=== PATIENT | female | born 1945 | race Caucasian/White ===

== ENCOUNTER 2017-12-06 17:46 | Emergency (ER) | payer MEDICARE, OTHER ==
[~2017-12-06] VITALS: Ht 170.2 cm; Wt 106.1 kg
--- NOTE | ~2017-12-06 | EKG ---
[address] [address] ELECTROCARDIOGRAM REPORT Name: ILAN EASON Room #: [facility]#: [id number] Admission: 12/06/17 Attend Phys: Discharge: 12/06/17 Date of : 49 Report #: [id number] THIS REPORT FOR: //name// [facility] ED Test Date: 2017-12-06 Test Time: 18:14:43 Pat Name: ILAN EASON Department: Room: Gender: F Director [employer]: MAME : 1945 Requested By: Paul Downs Order Number: [id number] MD: Jorgito Peterson Measurements Intervals [place] Rate: 77 P: 29 AR: 158 QRS: 6 QRSD: 94 T: 2 QT: 394 QTc: 446 Interpretive Statements Sinus rhythm Probable left atrial enlargement Compared to ECG 02/04/2015 12:28:13 Sinus bradycardia no longer present Electronically Signed On 12-07-2017 9:09:40 CDT by Jorgito Peterson [email or web address] <ELECTRONICALLY SIGNED> By: Jorgito Peterson MD, [facility] 12/07/17 0909 13 13 Jorgito Peterson MD, [facility] /EPI
[~2017-12-06 17:46] MED LIST: ABILIFY 2 MG2 M1 PO; ALDACTAZIDE 251 EAC1 PO; APAP500; ASPIRIN EC81 M1 PO; BENZTROPINE MES1 MG PO; BRINTELLIX10 MG; CITRACAL + BON1 EACH PO; CLEOCIN HCL300 MG PO; COUMADIN 5 MG TA5 M1 PO; ELIMITE60 GM TP; MELOXICAM7.5 MG PO; NEURONTIN 300M300 M2 PO; OMEPRAZOLE40 MG PO; PRAVASTATIN SOD40 MG PO; PREDNISONE 20 M20 MG PO; TOPROL XL100 MG PO; VITAMIN D-32000 UNIT PO; WELLBUTRIN SR150 MG PO; ZESTRIL20 MG PO
[2017-12-06] MEDS ORDERED: COUMADIN 3 MG TA3 M1 PO (17:56)
[2017-12-06] MEDS ORDERED: FLONASE 0.05%50 MCG NASAL (17:56)
[2017-12-06 18:48] LABS: ABSOLUTE NEUTROPHILS 7.7 thou/uL (1.4-8.2); EOSINOPHILS 1.6 % (0.0-3.0); HEMATOCRIT 35.6 % (37.0-47.0); HEMOGLOBIN 12.1 gm/dL (12.0-15.0); LYMPHOCYTES 21.4 % (24.0-44.0); MCH 31.9 pg (26.0-34.0); MCHC 34.1 g/dL (28.0-37.0); MCV 93.5 fL (80.0-100.0); MONOCYTES 5.8 % (1.0-8.0); PLATELET COUNT 284 thou/uL (150-400); POLYS 70.2 % (36.0-66.0); RDW 15.7 % (10.5-14.5)
[2017-12-06 18:58] LABS: ANION GAP 9 mmol/L (7-16); BUN 15 mg/dL (7-18); CALCIUM 9.1 mg/dL (8.5-10.1); CHLORIDE 102 mmol/L (98-107); CO2 26 mmol/L (21-32); CREATININE 1.1 mg/dL (0.6-1.0); GLUCOSE 138 mg/dL (74-106); POTASSIUM 3.7 mmol/L (3.5-5.1); SODIUM 137 mmol/L (136-145)
[2017-12-06 18:59] LABS: INR 1.7
[2017-12-06 19:05] LABS: ALBUMIN 3.3 g/dL (3.4-5.0); SGOT 23 U/L (15-37); SGPT 25 U/L (30-65); TOTAL BILIRUBIN 0.2 mg/dL (<0.1-1.0); TOTAL PROTEIN 7.6 g/dL (6.4-8.2); TROPONIN-I < 0.04 ng/mL (<0.06)
[2017-12-06] MEDS ORDERED: COUMADIN 4 MG TA4 M1 PO (20:39)
[2017-12-06 20:50] VITALS: BP 139/76
== END 2017-12-06 21:17 | disposition home or self-care (01) ==
LOC: ER 17:46
PROVIDERS: Physician Assistant
DX: R05 Cough (principal); I10 Essential (primary) hypertension; E78.00 Pure hypercholesterolemia, unspecified; Z96.659 Presence of unspecified artificial knee joint; Z86.711 Personal history of pulmonary embolism; Z88.8 Allergy status to other drugs, medicaments and biological substances; Z88.0 Allergy status to penicillin; Z88.6 Allergy status to analgesic agent

== ENCOUNTER 2020-04-26 06:52 | Emergency (ER) | payer MEDICARE, OTHER ==
[~2020-04-26] VITALS: Ht 177.8 cm; Wt 105.7 kg
[~2020-04-26 06:52] MED LIST changes: +COUMADIN 3 MG TA3 M1 PO; +COUMADIN 4 MG TA4 M1 PO; +FLONASE 0.05%50 MCG NASAL
[2020-04-26] MEDS ORDERED: ONDANSETRON HCL4 M3 PO (07:06)
[2020-04-26] MEDS ORDERED: VISTARIL 25 MG25 M1 PO (07:07)
[2020-04-26] MEDS ORDERED: NORVASC5 MG PO (07:08)
[2020-04-26 07:58] LABS: ABSOLUTE NEUTROPHILS 6.9 thou/uL (1.4-8.2); BASOPHILS 1.2 % (0.0-2.0); EOSINOPHILS 1.4 % (0.0-3.0); HEMATOCRIT 37.2 % (37.0-47.0); HEMOGLOBIN 12.5 gm/dL (12.0-15.0); LYMPHOCYTES 15.5 % (24.0-44.0); MCH 31.5 pg (26.0-34.0); MCHC 33.7 g/dL (28.0-37.0); MCV 93.6 fL (80.0-100.0); MONOCYTES 7.4 % (1.0-8.0); PLATELET COUNT 265 thou/uL (150-400); POLYS 74.5 % (36.0-66.0); RBC 3.98 mil/uL (4.20-5.00); RDW 15.2 % (10.5-14.5); WBC 9.2 thou/uL (4.0-11.0)
[2020-04-26 08:47] LABS: ANION GAP 8 mmol/L (7-16); BUN 21 mg/dL (7-18); CALCIUM 8.6 mg/dL (8.5-10.1); CHLORIDE 103 mmol/L (98-107); CO2 27 mmol/L (21-32); GLUCOSE 115 mg/dL (74-106); POTASSIUM 4.2 mmol/L (3.5-5.1); SODIUM 138 mmol/L (136-145)
[2020-04-26 08:58] LABS: ALBUMIN 3.2 g/dL (3.4-5.0); DIRECT BILIRUBIN < 0.1 mg/dL (<0.1-0.2); SGOT 23 U/L (15-37); SGPT 25 U/L (30-65); TOTAL BILIRUBIN 0.3 mg/dL (0.2-1.0); TOTAL PROTEIN 7.2 g/dL (6.4-8.2); TROPONIN-I <0.06 ng/mL (<0.06)
[2020-04-26 09:28] LABS: APTT 53.5 Seconds (24.5-32.8); INR 2.9; PROTIME 30.2 Seconds (9.3-11.4)
[2020-04-26] MEDS ORDERED: LIDODERM1 EACH TOP (10:03)
[2020-04-26 10:27] VITALS: BP 152/89
--- NOTE | 2020-04-26 12:47 | EKG ---
[facility] [place] [address] ELECTROCARDIOGRAM REPORT Name: ILAN EASON Room #: [facility]#: [id number] Admission: 04/26/20 Attend Phys: Discharge: 04/26/20 Date of : [birth year] Report #: [id number] THIS REPORT FOR: cc: [facility] - Clinic physician unknown [facility] - Clinic physician unknown Porfirio Alas MD [facility] ~ THIS REPORT FOR: //name// [facility] ED Test Date: 2020-04-26 Test Time: 07:29:40 Pat Name: ILAN EASON Department: Room: Gender: F [employer] Specialty: : 1945 Requested By: Christine Hall Order Number: [id number] MD: Porfirio Alas Measurements Intervals [place] Rate: 61 P: 34 OR: 164 QRS: 2 QRSD: 89 T: 17 QT: 435 QTc: 439 Interpretive Statements Sinus rhythm Compared to ECG 12/06/2017 18:14:43 No significant changes Electronically Signed On 04-26-2020 12:46:59 CDT by Porfirio Alas [email or web address] <ELECTRONICALLY SIGNED> By: Porfirio Alas MD, FACC 04/26/20 1246 8 Porfirio Alas MD, [facility] /EPI
== END 2020-04-26 10:28 | disposition home or self-care (01) ==
LOC: ER 06:52
PROVIDERS: Emergency Medicine
DX: R07.89 Other chest pain (principal); M94.0 Chondrocostal junction syndrome [Tietze]; R06.00 Dyspnea, unspecified; I10 Essential (primary) hypertension; E78.5 Hyperlipidemia, unspecified; Z90.710 Acquired absence of both cervix and uterus; Z79.01 Long term (current) use of anticoagulants; Z79.899 Other long term (current) drug therapy; Z88.0 Allergy status to penicillin; Z88.8 Allergy status to other drugs, medicaments and biological substances

== ENCOUNTER 2021-02-07 16:12 | Emergency (ER) | payer MEDICARE, OTHER ==
[~2021-02-07] VITALS: Ht 170.2 cm; Wt 107.0 kg
[~2021-02-07 16:12] MED LIST changes: +LIDODERM1 EACH TOP; +NORVASC5 MG PO; +ONDANSETRON HCL4 M3 PO; +VISTARIL 25 MG25 M1 PO
[2021-02-07 16:20] VITALS: BP 120/57
[2021-02-07] MEDS ORDERED: CHLORTHALIDONE25 MG PO (16:26)
== END 2021-02-07 17:23 | disposition home or self-care (01) ==
LOC: ER 16:12
DX: S93.505A Unspecified sprain of left lesser toe(s), initial encounter (principal); I10 Essential (primary) hypertension; E78.00 Pure hypercholesterolemia, unspecified; Z90.710 Acquired absence of both cervix and uterus; Z98.890 Other specified postprocedural states; Z86.711 Personal history of pulmonary embolism; Z88.0 Allergy status to penicillin; Z88.6 Allergy status to analgesic agent; X58.XXXA Exposure to other specified factors, initial encounter; Y93.89 Activity, other specified; Y92.89 Other specified places as the place of occurrence of the external cause; Y99.8 Other external cause status

== ENCOUNTER 2021-03-06 18:49 | Emergency (ER) | payer MEDICARE, OTHER ==
[~2021-03-06] VITALS: Ht 172.7 cm; Wt 108.0 kg
[~2021-03-06 18:49] MED LIST changes: +CHLORTHALIDONE25 MG PO
[2021-03-06 18:54] VITALS: BP 126/63
== END 2021-03-06 21:50 | disposition left against medical advice (07) ==
LOC: ER 18:49
DX: Z53.21 Procedure and treatment not carried out due to patient leaving prior to being seen by health care provider (principal)

== ENCOUNTER 2021-05-17 09:49 | Emergency (ER) | payer MEDICARE, OTHER ==
[~2021-05-17] VITALS: Ht 170.2 cm; Wt 104.3 kg
[2021-05-17 10:25] LABS: BASOPHILS 0.4 % (0.0-2.0); EOSINOPHILS 2.1 % (0.0-3.0); HEMATOCRIT 36.9 % (37.0-47.0); HEMOGLOBIN 12.5 gm/dL (12.0-15.0); LYMPHOCYTES 24.3 % (24.0-44.0); MCH 31.5 pg (26.0-34.0); MCV 92.6 fL (80.0-100.0); MONOCYTES 5.5 % (1.0-8.0); PLATELET COUNT 302 thou/uL (150-400); POLYS 67.7 % (36.0-66.0); RBC 3.98 mil/uL (4.20-5.00); RDW 14.5 % (10.5-14.5); WBC 7.3 thou/uL (4.0-11.0)
[2021-05-17 10:29] LABS: CALCIUM 8.9 mg/dL (8.5-10.1); CREATININE 1.3 mg/dL (0.6-1.0)
[2021-05-17 10:39] LABS: ALBUMIN 3.2 g/dL (3.4-5.0); TOTAL BILIRUBIN 0.3 mg/dL (0.2-1.0); TOTAL PROTEIN 7.5 g/dL (6.4-8.2)
[2021-05-17 10:51] LABS: INR 1.76; PROTIME 18.7 Seconds (10.5-12.1)
[2021-05-17] MEDS ORDERED: NORCO5 PO (11:53)
[2021-05-17 11:55] VITALS: BP 141/61
--- NOTE | 2021-05-17 13:02 | EKG ---
[address] [place] [address] ELECTROCARDIOGRAM REPORT Name: ILAN EASON Room #: [facility]#: [id number] Admission: 05/17/21 Attend Phys: Discharge: 05/17/21 Date of : 49 Report #: [id number] [facility] ED Test Date: 2021-05-17 Test Time: 10:33:33 Pat Name: ILAN EASON Department: Room: Gender: F Super[employer]: : 1945 Requested By: Sotero Garduno Order Number: [id number] MD: Domenico Godoy Measurements Intervals [place] Rate: 64 P: 43 PA: 158 QRS: 1 QRSD: 96 T: 17 QT: 433 QTc: 447 Interpretive Statements Sinus rhythm Compared to ECG 04/26/2020 07:29:40 No significant changes Electronically Signed On 05-17-2021 13:01:49 CDT by Domenico Godoy [email or web address] <ELECTRONICALLY SIGNED> By: Domenico Godoy MD 05/17/21 1301 1033 1033 MD FERNANDO Chun
== END 2021-05-17 12:02 | disposition home or self-care (01) ==
LOC: ER 09:49
PROVIDERS: Emergency Medicine
DX: M79.601 Pain in right arm (principal); R07.89 Other chest pain; M54.12 Radiculopathy, cervical region; I10 Essential (primary) hypertension; E78.00 Pure hypercholesterolemia, unspecified; Z90.710 Acquired absence of both cervix and uterus; Z79.899 Other long term (current) drug therapy; Z88.0 Allergy status to penicillin; Z88.6 Allergy status to analgesic agent; Z88.8 Allergy status to other drugs, medicaments and biological substances; Z86.711 Personal history of pulmonary embolism